=== PATIENT | female | born 1980 | race Caucasian/White ===

== ENCOUNTER 2018-11-05 15:34 | Outpatient (CLI) | payer MEDICAID ==
[2018-11-05 16:20] VITALS: BP 111/74
[2018-11-05] MEDS ORDERED: LACTATED RINGERS 1,000 ML IV ONE (16:26)
--- NOTE | 2018-11-05 16:32 | Progress Note ---
Assessment and Plan A: , unknown gestational age. No records available. Rule out labor. Variable FHR deceleration. P: Continuous EFM. US for BPP, DENIS, EFW, EDC/EGA. IV hydration with Lactated Ringers solution. Subjective - Subjective Date of service: 11/05/18 Principal diagnosis: Rule out labor Interval history: Patient complains of irregular contractions. She denies leaking of fluid or vaginal bleeding. Patient reports active movement. Patient states she receives care at [facility] [place] location. We do not have records available here at [facility] today. Patient states she is not sure when her due date is. Will get US for EDC/EGA, DENIS, EFW, and BPP. Patient reports: movement normal, contractions, no loss of fluid, no vaginal bleeding Objective - Vital Signs Vital Signs: Vital Signs - 12hr 11/05/18 16:19 Pulse Rate 89 Blood Pressure 111/74 - Exam Abdomen: Present: normal appearance, soft. Absent: distention, tenderness, guarding, rigidity Uterus: Present: fundal height above umbilicus. Absent: tenderness FHR: category 2 (FHR baseline 135 with moderate variability and accelerations; occasional variable FHR deceleration; no repetitive FHR decelerations seen) Uterine Contraction Monitor Mode: External Cervical Dilatation: 2 (Exam by RN upon arrival) Cervical Effacement Percentage: 50 station: -2 Uterine Contraction Pattern: Irregular Uterine Contraction Intensity: Mild
--- NOTE | 2018-11-05 17:53 | Ultrasound Report ---
ULTRASOUND OBSTETRIC Indication: DENIS, EFW, EGA/EDC Findings: There is a single intrauterine . BPD = 9 cm = 36 weeks, 3 day(s). Head circumference = 32.4 cm = 36 weeks, 5 day(s). Abdominal circumference = 33.6 cm = 37 weeks, 4 day(s). Femur length = 7.3 cm = 37 weeks, 4 day(s). Overall estimated sonographic age = 37 weeks, 1 day(s). heart rate is 141 beats per minute. Estimated weight is 3174 grams position is cephalic. movement is present. Amniotic fluid index equals 12 cm is within normal limits Impression: 1. Single living intrauterine with estimated sonographic age of 37 weeks, 1 day(s). 2. No sonographic abnormality identified. Biophysical profile score is 8 out of 8. Signer Name: Akhil Freire MD Signed: 11/05/2018 5:49 PM Workstation Name: [id number]
== END 2018-11-05 18:05 | disposition home or self-care (01) ==
LOC: TRG 15:34
PROVIDERS: ATTEND Obstetrics & Gynecology
DX: O47.03 False labor before 37 completed weeks of gestation, third trimester (principal); Z3A.37 37 weeks gestation of pregnancy
CPT/HCPCS: 76816; 76819